=== PATIENT | male | born 1975 | race Caucasian/White ===

== ENCOUNTER 2020-02-10 09:10 | Emergency (ER) | payer OTHER ==
[2020-02-10 09:18] VITALS: TEMP 98.4; BMI 27.4
--- OUTSIDE RECORDS SUMMARY | 2020-02-10 09:27 | XMS ---
:1975 Author [facility] Support Name Relationship Address Phone DELI Unavailable [address] [place] [address] TERESITA AG [address] [place] [address] Re-disclosure Warning The records that you are about to access may contain information from federally- assisted alcohol or drug abuse programs. If such information is present, then the following federally mandated warning applies: This information has been disclosed to you from records protected by federal confidentiality rules (42 CFR part 2). The federal rules prohibit you from making any further disclosure of this information unless further disclosure is expressly permitted by the written consent of the person to whom it pertains or as otherwise permitted by 42 CFR part 2. A general authorization for the release of medical or other information is NOT sufficient for this purpose. The Federal rules restrict any use of the information to criminally investigate or prosecute any alcohol or drug abuse patient.The records that you are about to access may contain highly sensitive health information, the redisclosure of which is protected by Article 27-F of the [facility] Public Health law. If you continue you may haveaccess to information: Regarding HIV / AIDS; Provided by facilities licensed or operated by the [facility] Office of Mental Health; or Provided by the [facility] Office for People With Developmental Disabilities. If such information is present, then the following [facility] mandated warning applies: This information has been disclosed to you from confidential records which are protected by state law. State law prohibits you from making any further disclosure of this information without the specific written consent of the person to whom it pertains, or as otherwise permitted by law. Any unauthorized further disclosure in violation of state law may result in a fine or correction sentence or both. A general authorization for the release of medical or other information is NOT sufficient authorization for further disclosure. Insurance Providers Payer name Policy type Policy ID Covered Covered libertarian's Policy P tadeo / Coverage libertarian ID relationship to [employer] ormation type velez NISHA [id number] ESSENTIAL PLAN 1 2
--- NOTE | 2020-02-10 09:35 | PDOC ---
History of Present Illness <Haylie Beltran - Last Filed: 02/10/20 12:45> - History of Present Illness Initial Comments: 02/10/20 09:59 44 M with DM , HLD , alcohol abuse presented for viral syndromes. Patient partook on a 3 days of binge drinking. Shortly after, he experienced subjected chills, mylagias, diaphoresis and 3 days of non bloody watery diarrhea. He denied nausea, vomiting, chest pain, abdominal pain, SOB, coughing. His last bowel movement was today normal. He denied COVID contact/traveling. HPI PMHX: as in HPI PSHX: none Meds: DM meds, lipitor Allergies: none Tob: 2 cigs a day. Etoh: daily 4 beers Rec drugs: none PCP: Trace Mario. Wing Scorer: phone research study assistant. ROS GENERAL/CONSTITUTIONAL: No fever or chills. No weakness. HEAD, EYES, EARS, NOSE AND THROAT: No change in vision. No ear pain or discharge. No sore throat. CARDIOVASCULAR: No chest pain or shortness of breath RESPIRATORY: No cough, wheezing, or hemoptysis. GASTROINTESTINAL: No nausea, vomiting, diarrhea or constipation. GENITOURINARY: No dysuria, frequency, or change in urination. MUSCULOSKELETAL: No joint or muscle swelling or pain. No neck or back pain. SKIN: No rash NEUROLOGIC: No headache, vertigo, loss of consciousness, or change in strength/sensation. ENDOCRINE: No increased thirst. No abnormal weight change HEMATOLOGIC/LYMPHATIC: No anemia, easy bleeding, or history of blood clots. ALLERGIC/IMMUNOLOGIC: No hives or skin allergy. PE GENERAL: Awake, alert, and fully oriented, in no acute distress HEAD: No signs of trauma, normocephalic, atraumatic EYES: PERRLA, EOMI, sclera anicteric, conjunctiva clear ENT: Auricles normal inspection, hearing grossly normal, nares patent, oropharynx clear without exudates. Moist mucosa NECK: Normal ROM, supple, no lymphadenopathy, JVD, or masses LUNGS: No distress, speaks full sentences, clear to auscultation bilaterally HEART: Regular rate and rhythm, normal S1 and S2, no murmurs, rubs or gallops, peripheral pulses normal and equal bilaterally. ABDOMEN: Soft, nontender, normoactive bowel sounds. No guarding, no rebound. No masses, Protruding, non distended. EXTREMITIES : Normal inspection, Normal range of motion, no edema. No clubbing or cyanosis. NEUROLOGICAL: Cranial nerves II through XII grossly intact. Normal speech, normal gait, no focal sensorimotor deficits SKIN: Warm, Dry, normal turgor, no rashes or lesions noted <Gurjit Daniel - Last Filed: 02/10/20 13:08> - General Chief Complaint: Weakness Stated Complaint: BODY ACHES/CHILLS/COUGH Time Seen by Provider: 02/10/20 09:34 Past History <Haylie Beltran - Last Filed: 02/10/20 12:45> - Medical History COPD: No Diabetes: Yes HTN: Yes - Immunization History Immunization Up to Date: No - Psycho-Social/Smoking History Smoking History: Current every day smoker Information on smoking cessation initiated: No - Substance Abuse Hx (Audit-C & DAST Scrn) How often the patient has a drink containing alcohol: 2-4 times / month Number of drinks the patient has on a typical day: 3 or 4 How often the patient has six or more drinks on one occasion: Less than monthly Score: In Men: 4 or > Positive; In Women: 3 or > Positive: 4 Screen Result (Pos requires Nsg. Audit-10AR): Positive In the last yr the pt used illegal drug/Rx for NonMed reason: No Score: Yes response is considered Positive: 0 Screen Result (Positive result requires Nsg. DAST-10): Negative <Gurjit Daniel - Last Filed: 02/10/20 13:08> - Medical History Allergies/Adverse Reactions: Allergies Allergy/AdvReac Type Severity Reaction Status Date / Time No Known Allergies Allergy Verified 02/10/20 10:27 Home Medications: Ambulatory Orders Atorvastatin Ca [Lipitor] 40 mg PO HS 02/10/20 Dapagliflozin Propanediol [Farxiga] 10 mg PO DAILY 02/10/20 Metformin HCl [Glucophage] 1,000 mg PO BID 02/10/20 *Physical Exam - Vital Signs Last Vital Signs Temp Pulse Resp BP Pulse Ox 98.4 F 84 20 133/94 100 02/10/20 09:16 02/10/20 09:16 02/10/20 09:16 02/10/20 09:16 02/10/20 09:16 <Haylie Beltran - Last Filed: 02/10/20 12:45> - Vital Signs Last Vital Signs Temp Pulse Resp BP Pulse Ox 98.4 F 84 20 133/94 100 02/10/20 09:16 02/10/20 09:16 02/10/20 09:16 02/10/20 09:16 02/10/20 09:16 <Chicho Danieleu - Last Filed: 02/10/20 13:08> ED Treatment Course - LABORATORY CBC & Chemistry Diagram: 02/10/20 09:52 02/10/20 09:52 - ADDITIONAL ORDERS Additional order review: Laboratory Results 02/10/20 09:52 Sodium 135 L Potassium 3.3 L Chloride 97 L Carbon Dioxide 28 Anion Gap 10 BUN 11.9 Creatinine 0.7 Est GFR (CKD-EPI)AfAm 132.09 Est GFR (CKD-EPI)NonAf 113.97 Random Glucose 200 H Calcium 8.8 Total Bilirubin 0.9 AST 80 H ALT 83 H Alkaline Phosphatase 154 H Total Protein 7.7 Albumin 4.0 02/10/20 09:52 RBC 4.76 MCV 93.7 MCHC 35.0 RDW 13.0 MPV 9.1 Neutrophils % 77.0 Lymphocytes % 15.5 Monocytes % 5.5 Eosinophils % 1.5 Basophils % 0.5 - RADIOLOGY Radiology Studies Ordered: Category Date Time Status CHEST PA & LAT [RAD] Stat Radiology 02/10/20 10:29 Completed - Medications Given in the ED: ED Medications Discontinued Medications Generic Name Dose Route Start Last Admin Trade Name Freq PRN Reason Stop Dose Admin Folic Acid 1 mg 02/10/20 10:05 02/10/20 10:12 Folic Acid - PO 02/10/20 10:06 1 mg ONCE ONE Administration Lactated Ringer's 1,000 ml 02/10/20 10:15 02/10/20 10:12 Lactated Ringers Solution IV 02/10/20 10:16 1,000 ml ONCE ONE Administration Potassium Chloride 20 meq 02/10/20 11:15 02/10/20 11:35 K-Dur - PO 02/10/20 11:16 20 meq ONCE ONE Administration Thiamine HCl 100 mg 02/10/20 10:05 02/10/20 10:12 Vitamin B1 - PO 02/10/20 10:06 100 mg ONCE ONE Administration <Haylie Beltran - Last Filed: 02/10/20 12:45> - LABORATORY CBC & Chemistry Diagram: 02/10/20 09:52 02/10/20 09:52 <Gurjit Daniel - Last Filed: 02/10/20 13:08> Medical Decision Making - Medical Decision Making 02/10/20 10:07 44 M with hx of alcohol abuse, DM, HLD presented here for 3 days of diaphoresis, diarrhea, myalgias s/p 3 days of alcohol binging. -CBC, CMP MEd: 1Liter of LR, thiamine PO, folate PO reassess. 02/10/20 10:14 Declined [facility] invitation. 02/10/20 12:52 Blood work revealed low K 3.2 ---> will replaced with 20mEq PO Elevated liver enzymes 80s. Patient vowed to not drink alcohol anymore. [facility] information is given. f/u with PCP. <Gurjit Daniel - Last Filed: 02/10/20 13:08> Discharge <DevinHaylie - Last Filed: 02/10/20 12:45> - Discharge Information Problems reviewed: Yes <Gurjit Daniel - Last Filed: 02/10/20 13:08> - Discharge Information Clinical Impression/Diagnosis: Alcohol use disorder Diarrhea Qualifiers: Diarrhea type: unspecified type Qualified Code(s): R19.7 - Diarrhea, unspecified Condition: Stable Disposition: HOME - Follow up/Referral Referrals: Trace Quiñonez MD [Primary Care Provider] - - Patient Discharge Instructions Patient Printed Discharge Instructions: DI for Alcohol Use Disorder Additional Instructions: Discharge Instructions: You were seen in the ED for complaints of diarrhea and sweating. Your blood tests did not show any concerning findings, though your blood sugar and liver tests were slightly elevated. Your symptoms may be due to your recent heavy drin esau or due to a mild viral infection. Home Care: - It is strongly recommended that you stop drinking. You should not have more than 1-2 drinks at any time and no more than 7 drinks per week. If you need help stopping, you may go to detox at [address] at any time. - Your blood sugar and liver tests were a little high and should be rechecked within the next few weeks. - Call your regular doctor on Wednesday to schedule follow up. Tell him about your blood tests. - Seek immediate medical care for worsening symptoms, inability to eat/drink, dehydration (eg if you stop urinating), severe vomiting, chest pain, or any other medical emergency. Instrucciones de descarga: Lo vieron en el servicio de urgencias por quejas de diarrea y sudoracin. Mateusz anlisis de sky no mostraron ningn hallazgo preocupante, aunque mateusz anlisis de azcar en sky y de hgado estaban levemente elevados. Mateusz sntomas pueden deberse a gonsales consumo excesivo de alcohol recientemente o debido a jerome infeccin viral leve. Cuidados en el hogar: - Se recomienda encarecidamente que deje de beber. No debe trinidad ms de 1 a 2 bebidas a la vez y no ms de 7 bebidas por semana. Si necesita ayuda para detenerse, puede desintoxicarse en [address], [place] en cualquier momento. - Mateusz anlisis de azcar en sky y de hgado estaban un poco altos y deben volver a controlarse en las prximas semanas. - Llame a gonsales mdico habitual el [facility] para programar un seguimiento. Cuntele sobre mateusz anlisis de sky. - Busque atencin mdica inmediata si los sntomas empeoran, la incapacidad para comer / beber, la deshidratacin (por ejemplo, si anand de orinar), los vmitos intensos, el dolor de pecho o cualquier otra emergencia mdica. - Post Discharge Activity
[2020-02-10] MEDS ORDERED: FOLIC ACID 1 MG TABLET (FP) PO ONE (10:05)
[2020-02-10] MEDS ORDERED: THIAMINE HCL 100 MG TABLET (FP) PO ONE (10:05)
[2020-02-10] MEDS ORDERED: FOLIC ACID 1 MG TABLET (FP) ONE (10:08)
[2020-02-10] MEDS ORDERED: THIAMINE HCL 100 MG TABLET (FP) ONE (10:08)
[2020-02-10] MEDS ORDERED: LACTATED RINGERS SOLUTION 1000 ML INFUS.BAG IV ONE (10:15)
[2020-02-10 10:20] LABS: BASO % 0.5 % (0-2.0); EOS % 1.5 % (0-4.5); HEMATOCRIT 44.6 % (35.4-49); HEMOGLOBIN 15.6 GM/dL (11.7-16.9); LYMPH % 15.5 % (8-40); MCH 32.8 pg (25.7-33.7); MEAN CELL VOLUME 93.7 fl (80-96); MEAN PLT VOLUME 9.1 fl (7.5-11.1); MONO % 5.5 % (3.8-10.2); PLATELET COUNT 161 K/MM3 (134-434); RBC 4.76 M/mm3 (4.00-5.60); WHITE BLOOD COUNT 8.8 K/mm3 (4.0-10.0)
[2020-02-10 10:54] LABS: BILIRUBIN,TOTAL 0.9 mg/dL (0.2-1); BLOOD UREA NITROGEN 11.9 mg/dL (7-18); CALCIUM 8.8 mg/dL (8.5-10.1); CREATININE 0.7 mg/dL (0.55-1.3); POTASSIUM 3.3 mmol/L (3.5-5.1); TOT PROT 7.7 g/dl (6.4-8.2)
[2020-02-10] MEDS ORDERED: POTASSIUM CHLORIDE TABS 20 MEQ TABLET.ER (FP) PO ONE ×2 (11:15→11:31)
--- NOTE | 2020-02-10 11:18 | PDOC ---
Documentation entered by Rhea Franklin SCRIBE, acting as scribe for Charlene Gerber MD. Charlene Gerber MD: This documentation has been prepared by the Noemi cordon Brenda, SCRIBE, under my direction and personally reviewed by me in its entirety. I confirm that the documentation accurately reflects all work, treatment, procedures, and medical decision making performed by me. Attending Attestation - Resident Resident Name: Gurjit Daniel - ED Attending Attestation I have performed the following: I have examined & evaluated the patient, The case was reviewed & discussed with the resident, I agree w/resident's findings & plan, Exceptions are as noted - HPI HPI: 02/10/20 09:55 44YOM with h/o DM who p/w nausea, vomiting, watery diarrhea, and malaise. He recently went on a 3 day EtOH binge which ended 3 days ago. Notes that after that time, he developed the n/v/d for 2 days, also had sweats over the past 2 nights. Denies f/c, prior withdrawal symptoms, SOB, lightheadedness, dizziness, abdominal pain, seizures, LOC, injuries, or other symptoms. Denies prior diagnosed ETOH use disorder but states drinks about 21 drinks/week, wants to stop drinking altogether. Denies cough, shortness of breath, chest pain, abdominal pain, nausea, vomiting or cough. Denies any symptoms. Allergies: NKA Social Hx: Current everyday smoker, excessive alcohol use PCP: Trace Quiñonez - Physicial Exam PE: 02/10/20 09:59 GENERAL: nontoxic-appearing, A/Ox4, no distress, answers questions appropriately, pleasant HEENT: PERRLA, EOMI, moist mucous membranes NECK/BACK: no midline ttp, no spinal stepoff or deformity, no hematoma, full ROM, neck supple CARDIOVASCULAR: regular rate/rhythm, no MGR, strong peripheral pulses, capillary refill <2 seconds, extremities wwp, no edema LUNGS/RESPIRATORY: no respiratory distress, CTAB GI/ABDOMEN: symmetric [id number], normoactive BS, soft, no ttp, no midline pulsatile masses : no CVA tenderness MSK/EXTREMITIES: no muscle atrophy, no acute deformity SKIN: warm and dry, no pallor, no jaundice, no rash, no pathologic-appearing bruising, no skin breakdown, no cuts, no lesions NEUROLOGICAL: GCS 15, CN II-XII grossly intact, 5/5 strength proximally and distally, no facial droop, no asterixis, no tremor, no tongue fasciculations - Medical Decision Making 02/10/20 11:48 44YOM with h/o DM and EtOH use disorder, p/w watery diarrhea, and sweats. Initial Vital Signs Temp Pulse Resp BP Pulse Ox 98.4 F 84 20 133/94 100 02/10/20 09:16 02/10/20 09:16 02/10/20 09:16 02/10/20 09:16 02/10/20 09:16 Most likely viral gastroenteritis, could also be related to his recent alcohol binge. Very unlikely infectious diarrhea in that he has no blood, no h/o camping/stream drinking, recent abx, questionable foods, or known sick exposures. Unlikely pancreatitis without greasy white stool or abdominal pain. Provider Orders Category Date Time Status Isolation Precautions As directed Care 02/10/20 09:53 Active CBC WITH DIFFERENTIAL Stat Lab 02/10/20 09:52 Completed COMP METABOLIC PANEL Stat Lab 02/10/20 09:52 Completed COVID-19 Stat Lab 02/10/20 09:52 Received Folic Acid - Medication 02/10/20 10:08 Discontinued 1 mg .ROUTE .STK-MED ONE Folic Acid - Medication 02/10/20 10:05 Discontinued 1 mg PO ONCE ONE Lactated Ringers Solution Medication 02/10/20 10:15 Discontinued 1,000 ml IV ONCE ONE Potassium Chloride [K-Dur -] Medication 02/10/20 11:31 Discontinued 20 meq PO .STK-MED ONE Potassium Chloride [K-Dur -] Medication 02/10/20 11:15 Discontinued 20 meq PO ONCE ONE Thiamine HCl [Vitamin B1 -] Medication 02/10/20 10:08 Discontinued 100 mg .ROUTE .STK-MED ONE Thiamine HCl [Vitamin B1 -] Medication 02/10/20 10:05 Discontinued 100 mg PO ONCE ONE IV Insert NOW Phy Order 02/10/20 09:35 Active CHEST PA & LAT [RAD] Stat Radiology 02/10/20 10:29 Completed Medications Discontinued Medications Generic Name Dose Route Start Last Admin Trade Name Freq PRN Reason Stop Dose Admin Folic Acid 1 mg 02/10/20 10:05 02/10/20 10:12 Folic Acid - PO 02/10/20 10:06 1 mg ONCE ONE Administration Folic Acid Confirm 02/10/20 10:08 Folic Acid - Administered 02/10/20 10:09 Dose 1 mg .ROUTE .STK-MED ONE Lactated Ringer's 1,000 ml 02/10/20 10:15 02/10/20 10:12 Lactated Ringers Solution IV 02/10/20 10:16 1,000 ml ONCE ONE Administration Potassium Chloride 20 meq 02/10/20 11:15 02/10/20 11:35 K-Dur - PO 02/10/20 11:16 20 meq ONCE ONE Administration Potassium Chloride Confirm 02/10/20 11:31 K-Dur - Administered 02/10/20 11:32 Dose 20 meq PO .STK-MED ONE Thiamine HCl 100 mg 02/10/20 10:05 02/10/20 10:12 Vitamin B1 - PO 02/10/20 10:06 100 mg ONCE ONE Administration Thiamine HCl Confirm 02/10/20 10:08 Vitamin B1 - Administered 02/10/20 10:09 Dose 100 mg .ROUTE .STK-MED ONE Lab Results WBC 8.8 K/mm3 (4.0-10.0) 02/10/20 09:52 RBC 4.76 M/mm3 (4.00-5.60) 02/10/20 09:52 Hgb 15.6 GM/dL (11.7-16.9) 02/10/20 09:52 Hct 44.6 % (35.4-49) 02/10/20 09:52 MCV 93.7 fl (80-96) 02/10/20 09:52 MCH 32.8 pg (25.7-33.7) 02/10/20 09:52 MCHC 35.0 g/dl (32.0-35.9) 02/10/20 09:52 RDW 13.0 % (11.9-15.9) 02/10/20 09:52 Plt Count 161 K/MM3 (134-434) 02/10/20 09:52 MPV 9.1 fl (7.5-11.1) 02/10/20 09:52 Absolute Neuts (auto) 6.8 K/mm3 (1.5-8.0) 02/10/20 09:52 Neutrophils % 77.0 % (42.8-82.8) 02/10/20 09:52 Lymphocytes % 15.5 % (8-40) 02/10/20 09:52 Monocytes % 5.5 % (3.8-10.2) 02/10/20 09:52 Eosinophils % 1.5 % (0-4.5) 02/10/20 09:52 Basophils % 0.5 % (0-2.0) 02/10/20 09:52 Nucleated RBC % 0 % (0-0) 02/10/20 09:52 Sodium 135 mmol/L (136-145) L 02/10/20 09:52 Potassium 3.3 mmol/L (3.5-5.1) L 02/10/20 09:52 Chloride 97 mmol/L (98-107) L 02/10/20 09:52 Carbon Dioxide 28 mmol/L (21-32) 02/10/20 09:52 Anion Gap 10 MMOL/L (8-16) 02/10/20 09:52 BUN 11.9 mg/dL (7-18) 02/10/20 09:52 Creatinine 0.7 mg/dL (0.55-1.3) 02/10/20 09:52 Est GFR (CKD-EPI)AfAm 132.09 02/10/20 09:52 Est GFR (CKD-EPI)NonAf 113.97 02/10/20 09:52 Random Glucose 200 mg/dL (74-106) H 02/10/20 09:52 Calcium 8.8 mg/dL (8.5-10.1) 02/10/20 09:52 Total Bilirubin 0.9 mg/dL (0.2-1) 02/10/20 09:52 AST 80 U/L (15-37) H 02/10/20 09:52 ALT 83 U/L (13-61) H 02/10/20 09:52 Alkaline Phosphatase 154 U/L (45-117) H 02/10/20 09:52 Total Protein 7.7 g/dl (6.4-8.2) 02/10/20 09:52 Albumin 4.0 g/dl (3.4-5.0) 02/10/20 09:52 CXR nothing acute. Nipple shadow noted. Patient's workup is reassuring. He has mild LFT elevation which may be d/t the alcohol use over the past week. No RUQ pain. The patient states he has never withdrawn from EtOH, never had a seizure, no tremor or other complaint. He does not want detox, states it has been 3 days since he drank and he feels will be able to continue managing at home. Return precautions discussed, dispo per res ident note. Last Vital Signs Temp Pulse Resp BP Pulse Ox 98.4 F 79 20 128/92 100 02/10/20 09:16 02/10/20 13:02 02/10/20 13:02 02/10/20 13:02 02/10/20 13:02 Discharge - Discharge Information Problems reviewed: Yes Clinical Impression/Diagnosis: Alcohol use disorder Diarrhea Qualifiers: Diarrhea type: unspecified type Qualified Code(s): R19.7 - Diarrhea, unspecified Condition: Stable Disposition: HOME - Admission No - Follow up/Referral Referrals: Trace Quiñonez MD [Primary Care Provider] - - Patient Discharge Instructions Patient Printed Discharge Instructions: DI for Alcohol Use Disorder Additional Instructions: Discharge Instructions: You were seen in the ED for complaints of diarrhea and sweating. Your blood tests did not show any concerning findings, though your blood sugar and liver tests were slightly elevated. Your symptoms may be due to your recent heavy drinking or due to a mild viral infection. Home Care: - It is strongly recommended that you stop drinking. You should not have more than 1-2 drinks at any time and no more than 7 drinks per week. If you need help stopping, you may go to detox at [address] [place] [address] at any time. - Your blood sugar and liver tests were a little high and should be rechecked within the next few weeks. - Call your regular doctor on Wednesday to schedule follow up. Tell him about your blood tests. - Seek immediate medical care for worsening symptoms, inability to eat/drink, dehydration (eg if you stop urinating), severe vomiting, chest pain, or any other medical emergency. Instrucciones de descarga: Lo vieron en el servicio de urgencias por quejas de diarrea y sudoracin. Mamta anlisis de sky no mostraron ningn hallazgo preocupante, aunque mamta anlisis de azcar en sky y de hgado estaban levemente elevados. Mamta sntomas pueden deberse a gonsales consumo excesivo de alcohol recientemente o debido a jerome infeccin viral leve. Cuidados en el hogar: - Se recomienda encarecidamente que deje de beber. No debe trinidad ms de 1 a 2 bebidas a la vez y no ms de 7 bebidas por semana. Si necesita ayuda para detenerse, puede desintoxicarse en [address] [place] en cualquier momento. - Mamta anlisis de azcar en sky y de hgado estaban un poco altos y deben volver a controlarse en las prximas semanas. - Llame a gonsales mdico habitual el [facility] para programar un seguimiento. Cuntele sobre mamta anlisis de sky. - Busque atencin mdica inmediata si los sntomas empeoran, la incapacidad para comer / beber, la deshidratacin (por ejemplo, si anand de orinar), los vmitos intensos, el dolor de pecho o cualquier otra emergencia mdica. - Post Discharge Activity
[2020-02-10 13:03] VITALS: BP 128/92; PULSE 79
== END 2020-02-10 13:03 | disposition home or self-care (01) ==
LOC: JER 09:10
DX: F10.27 Alcohol dependence with alcohol-induced persisting dementia (principal); R19.7 Diarrhea, unspecified
CPT/HCPCS: 36415; 71046-TC-FY; 80053; 85025; 99284-25; U0003